=== PATIENT | female | born 1980 | race Caucasian/White ===

== ENCOUNTER 2017-10-05 00:05 | Emergency (ER) | payer MEDICAID ==
[~2017-10-05] VITALS: Ht 165.1 cm; Wt 81.2 kg
[2017-10-05 00:11] VITALS: Ht 165.1 cm; Wt 81.2 kg
[2017-10-05 02:47] VITALS: BP 137/84
== END 2017-10-05 02:45 | disposition home or self-care (01) ==
LOC: ED 00:05
DX: O03.9 Complete or unspecified spontaneous abortion without complication (principal); N93.9 Abnormal uterine and vaginal bleeding, unspecified; R10.2 Pelvic and perineal pain; Z3A.01 Less than 8 weeks gestation of pregnancy

== ENCOUNTER 2018-04-24 14:05 | Emergency (ER) | payer MEDICAID ==
[2018-04-24 16:52] LABS: BASOPHIL % 0.4 % (0-2); PLATELET COUNT 341 x10^3mcL (130-400)
[2018-04-24 17:00] LABS: RED CELL DISTRIBUTION WIDTH 15.1 % (11.5-14.5)
[2018-04-24 20:01] VITALS: BP 128/79
== END 2018-04-24 20:01 | disposition home or self-care (01) ==
LOC: ED 14:05
PROVIDERS: Emergency Medicine
DX: O02.81 Inappropriate change in quantitative human chorionic gonadotropin (hCG) in early pregnancy (principal); Z3A.08 8 weeks gestation of pregnancy
CPT/HCPCS: 36415; Q0092